=== PATIENT | male | born 1970 | race Hispanic/Latino ===

== ENCOUNTER → 2019-09-23 | Outpatient (CLI) | payer BC, SELFPAY | END | disposition home or self-care (01) | LOC: RAH 11:15 | PROVIDERS: ATTEND Family Medicine | DX: S40.011A Contusion of right shoulder, initial encounter (principal); M77.9 Enthesopathy, unspecified; X58.XXXA Exposure to other specified factors, initial encounter; Y93.89 Activity, other specified; Y92.89 Other specified places as the place of occurrence of the external cause; Y99.8 Other external cause status | CPT/HCPCS: 73221 ==